=== PATIENT | female | born 1990 | race Hispanic/Latino ===

== ENCOUNTER 2018-11-27 16:40 | Inpatient (IN) | payer MEDICAID, OTHER, SELFPAY ==
[2018-11-27 16:29] LABS: RPR Titer ND
[2018-11-27 16:38] LABS: Absolute Lymphocytes (CBC) 1.5 K/uL (0.7-4.9); Absolute Monocytes 0.7 K/uL (0.1-1.3); Basophils % 0.4 % (0-1.3); Eosinophils % 0.5 % (0-4.4); Hematocrit 40.6 % (36.0-45.0); Lymphocytes % 13.2 % (15.3-44.8); MPV 11.6 fL (7.6-11.3); Monocytes % 6.6 % (3.3-12.3); RBC Red Blood Cell Count 4.67 M/uL (3.86-4.86); Urine Appearance CLEAR; Urine Bilirubin NEGATIVE (NEG); Urine Blood NEGATIVE (NEG); Urine Color YELLOW; Urine Glucose NEGATIVE (NEG); Urine Protein NEGATIVE (NEG); Urine Specific Gravity <=1.005 (1.005-1.030); Urine Urobilinogen 0.2 mg/dL (0.2-1.0)
[2018-11-27 16:40] LABS: Urine Microscopic Reflex NO UMIC
[~2018-11-27 16:40] MED LIST: BUTORPHANOL 1 MG/ML INJ IV PRN; METHYLERGONOVINE 0.2MG/ML AMP IM PRN; PROMETHAZINE 25 MG/ML VIAL IM PRN; Ringers Lactate 1,000 ML IV PRN; miSOPROStol 100 MCG TAB ONE
[2018-11-27] MEDS ORDERED: miSOPROStol 100 MCG TAB VAG SCH (17:00)
[2018-11-27] MEDS ORDERED: Ringers Lactate 1,000 ML IV SCH (17:00)
[2018-11-27 17:03] VITALS: BMI 29.5
[2018-11-27] MEDS ORDERED: INFLUENZA VACCINE (for 3y+) 0.5 ML DOSE IMVAC ONE (18:00)
[2018-11-27 18:09] LABS: Blood Morphology Comment NOT SEEN (NOT SEEN); Platelet Estimate DECR; Platelets, Giant PRESENT; Urine White Blood Cell Casts OK
--- NOTE | 2018-11-27 21:18 | PREOPHP ---
Date of Admission: 11/27/2018 A 28-year-old primigravida, who is either 39 weeks and 1 day or 39 weeks and 6 days according to the ultrasound since there is 6 day difference between menstrual calculation and ultrasound. I think the ultrasound is probably more likely correct although either one could be correct. The patient was sc heduled for Cytotec insertion this afternoon but she is linh very regularly now and is 2.5 cm, 60% to 70% effaced, vertex, -1 station. Baby looks excellent on the monitor. We will not use Cytot ec since she is probably in early labor. Instead, we will let her progress naturally but if she does not show any significant change by early in the morning, then we will start on oxytocin. Full labor talk given. She knows she can ask for analgesics at any time. She knows that if the membranes rupt ure, she is to notify the nurses so they can check her immediately. Right now though she is looking very good but most likely in very early labor at this point. TADEO/GARO Voice ID: [id number]
[2018-11-27 22:15] LABS: RPR (Rapid Plasma Reagin) NON-REACT (NON-REACT)
[2018-11-28] MEDS ORDERED: OXYTOCIN/LR 20 UNIT/1,000 ML BAG IV SCH ×2 (05:00→17:00)
[2018-11-28] MEDS ORDERED: LIDOCAINE 2% 20 ML MDV IV ONE (08:23)
[2018-11-28] MEDS ORDERED: METHYLERGONOVINE 0.2MG/ML AMP IM PRN (08:46)
--- NOTE | 2018-11-28 09:07 | PN ---
The patient is linh regularly now. She is 5-1/2 cm. Baby still has not really descended very well. Baby has good variability. The patient is continuing to do Lamaze breathing. I think she wi ll start making more rapid progress soon. TADEO/GARO Voice ID: [id number] Report ID: [id number]
--- NOTE | 2018-11-28 11:43 | PN ---
The patient is on Pitocin. Norberto regularly now. She is 4-/2. Still -1 station. Rupture of membranes, clear fluid. Baby well applied. Anticipate more rapid progress from this point. The pat ient thus far is going natural. She is doing quite well. Has good control. TADEO/GARO Voice ID: [id number] Report ID: [id number]
--- NOTE | 2018-11-28 12:07 | PN ---
20 milliunits of Pitocin, linh regularly, every 2 to 3 minutes. She is still 7 cm, however, a nd the baby is still -1 station. Baby is occiput posterior. Pelvic rocks have been discussed with t he patient, but so far she has not managed to do them. She has had 1 mg of Stadol, but otherwise is using Lamaze breathing techniques to best advantage. I think with baby rotates, we will have deliver y relatively quickly. Full discussion about pelvic rocks. VYC/MODL Voice ID: [id number] Report ID: [id number]
--- NOTE | 2018-11-28 14:06 | PN ---
The patient is on 20 milliunits, linh very regularly and very firmly every 2 minutes. She has been 7 cm since approximately 9 a.m., therefore, 4 hours without cervical change. Baby looks good. Vital signs are normal. The patient is doing an excellent job of breathing techniques. The baby pandya s not descended past -1 station in this last 4 hours. I think, the baby is occiput posterior. The p atiglesia has been doing pelvic rocks, but that has not brought about rotation of the baby. The patient states that she wishes to wait another hour and if she has made no cervical change, then she wants a . I think this is very reasonable under the circumstances. In fact, I told her she can chris t 2 more hours if she wishes, but the patient states 1 hour will be sufficient. If she makes change of course, we will continue to monitor, but if no change that would be 5 hours of no cervical change at 7 cm and should be enough to represent cephalopelvic disproportion, probably because of the occipu t posterior position of the baby. Her side to side measurements in the pelvis are normal, anterior t o posterior measurements over in somewhat doubt, she may have a prominent sacral promontory, which we will find out if we do a . TADEO/GARO Voice ID: [id number] Report ID: [id number]
[2018-11-28] MEDS ORDERED: IBUPROFEN 200 MG TAB PO PRN (16:47)
[2018-11-28] MEDS ORDERED: BISACODYL 10 MG RECTAL SUPP RECT PRN (16:47)
[2018-11-28] MEDS ORDERED: DOCUSATE NA/SENNA CONC 1 TAB PO PRN (16:47)
[2018-11-28] MEDS ORDERED: Oxycodone HCl/Acetaminophen 1 TAB TAB PO PRN ×2 (16:47)
[2018-11-28] MEDS ORDERED: DIPHENHYDRAMINE 25 MG TAB/CAP PO PRN (16:47)
[2018-11-28] MEDS ORDERED: ACETAMINOPHEN 500 MG TAB PO PRN (16:47)
[2018-11-29] MEDS ORDERED: LIDOCAINE 2% MPF 5 ML VIAL IV ONE (01:40)
[2018-11-29] MEDS ORDERED: CEFTRIAXONE 1000 MG/VIAL IM ONE (01:45)
[2018-11-29] MEDS ORDERED: LIDOCAINE 1% MPF 2 ML AMPULE ONE (02:03)
--- NOTE | 2018-11-29 03:05 | PN ---
I was informed by nurses the patient had mild temperature elevation of 100 and pulse of about 120. H er perineum is fine. There are no signs of hematoma. She did have multiple stitches. We will give her 1 g of Rocephin. I think the main problem is hydration. The patient is instructed to hydrate, a nd we will see what her temperatures do over the next couple of evaluations. TADEO/GARO Voice ID: [id number] Report ID: [id number]
--- NOTE | 2018-11-29 03:47 | OP ---
Surgeon: Davon Munoz MD Miriam Marr, 28-year-old primigravida, admitted for Cytotec induction at 39 weeks and 2 to 3 da ys. On exam, however, patient was having regular uterine contractions, noted to be 2.5 cm, so Cytote c was not used. She was observed overnight and then early this morning, had Pitocin augmentation sta rted. At approximately 7 a.m., rupture of membranes was performed, clear fluid. The patient was at that time about 4 cm. She used Lamaze breathing techniques to best advantage. 1 mg Stadol 1 time on ly. When she reached 7 cm, she stopped dilating for about 4 hours. The baby was thought to be occip ut posterior. Patient did pelvic rocks. Finally baby rotated into an anterior position, then she we nt to complete. Second stage of approximately 1/2 hour. Spontaneous vaginal delivery of an estimate d 7-pound female, Apgars 9 and 9, nuchal cord loosely x2. Small but jagged first-degree lacerations on both sides of the introitus sutured with 2-0 chromic running locked stitch. Local infiltration. Schultze delivery of the placenta, which was inspected and noted to be intact and normal. 350 to 400 cc total blood loss. Rh positive. Immune to Rubella. Negative beta strep screen. The patient herve erated all procedures well. Final Diagnoses: Intrauterine gestation, time of delivery thought to be 39 weeks and 4 days. Nuchal cord loosely x2. TADEO/GARO Voice ID: [id number] Report ID: [id number]
[2018-11-29] MEDS ORDERED: Tdap (Diph,Pertuss(Acell),Tet Vac) 0.5 ML SYR IMVAC ONE ×2 (16:35→16:57)
[2018-11-29] MEDS ORDERED: INFLUENZA VACCINE (for 3y+) 0.5 ML DOSE IMVAC ONE (16:56)
[2018-11-29 18:04] VITALS: BP 139/82; TEMP 98
--- NOTE | 2018-11-30 05:53 | DS ---
Date of Discharge: 11/29/2018 Hospital Course: A 28-year-old primigravida, 39 weeks 1 day. Delivered an estimated 7-pound female. Apgars 9 and 9. Local infiltration for repair of bilateral first-degree sulcus lacerations. Schul tz delivery of the placenta. Estimated blood loss 350-400 cc. Baby noted to have a nuchal cord time s 2 very loosely. Beta strep negative, Rh positive, immune to Rubella. , afebrile, ambula ting, voiding. Lochia is normal. She will be dismissed later today to report back to my office in 6 weeks for followup, to report any temperature elevation of 100 degrees or greater, severe pain, heav y bleeding, or any other type of abnormality. Dismissed with tramadol for analgesia, although she ma y elect to take Motrin instead. Final Diagnoses: Term intrauterine , 39 weeks 1 day, vaginal delivery. Nuchal cord x2. TADEO/GARO Voice ID: [id number] Report ID: [id number]
[2018-12-01 00:51] LABS: HBsAG Nonreactive (Nonreactive)
== END 2018-11-29 18:55 | disposition home or self-care (01) | DRG 806 ==
LOC: L&D 16:40 → 2ND-WC 16:46
PROVIDERS: ADMIT Specialist; ATTEND Specialist
PROC: 10E0XZZ Delivery of Products of Conception, External Approach (ICD-10-PCS; principal; 2018-11-28)
PROC: 0HQ9XZZ Repair Perineum Skin, External Approach (ICD-10-PCS; 2018-11-28)
PROC: 10907ZC Drainage of Amniotic Fluid, Therapeutic from Products of Conception, Via Natural or Artificial Opening (ICD-10-PCS; 2018-11-28)
DX: O70.0 First degree perineal laceration during delivery (principal); O75.2 Pyrexia during labor, not elsewhere classified; Z37.0 Single live birth; O69.81X0 Labor and delivery complicated by cord around neck, without compression, not applicable or unspecified; Z3A.39 39 weeks gestation of pregnancy
CPT/HCPCS: 36415; 81003; 85025; 86592; 86901; 87340; 90715; J0595; J2001; J2210; J2550; J2590; Q2035

== ENCOUNTER 2020-09-08 09:52 | Inpatient (IN) | payer OTHER, SELFPAY ==
[2020-09-08] MEDS ORDERED: miSOPROStoL 100 MCG TAB ONE (15:24)
[2020-09-08] MEDS ORDERED: METHYLERGONOVINE 0.2MG/ML AMP IM PRN (15:49)
[2020-09-08] MEDS ORDERED: CARBOPROST TROME 250 MCG/ML IM PRN (15:49)
[2020-09-08] MEDS ORDERED: PROMETHAZINE INJ 25 MG/ML AMP IM PRN (15:49)
[2020-09-08] MEDS ORDERED: Ringers Lactate 1,000 ML IV PRN (15:49)
[2020-09-08] MEDS ORDERED: BUTORPHANOL 1 MG/ML INJ IV PRN (15:49)
[2020-09-08 15:54] VITALS: BMI 33.3
[2020-09-08] MEDS ORDERED: ZOLPIDEM TARTRATE 10 MG TABLET PO PRN (15:55)
[2020-09-08] MEDS ORDERED: MAGNES/ALUMIN/SIMET 30ML UCUP PO PRN (15:55)
[2020-09-08] MEDS ORDERED: Ringers Lactate 1,000 ML IV SCH (16:00)
[2020-09-08] MEDS ORDERED: OXYTOCIN/LR 20 UNIT/1,000 ML BAG IV SCH (16:00)
[2020-09-08] MEDS ORDERED: Ringers Lactate 1,000 ML IV ONE (16:14)
[2020-09-08 16:31] LABS: Urine Appearance CLOUDY; Urine Bilirubin NEGATIVE (NEG); Urine Blood NEGATIVE (NEG); Urine Color YELLOW; Urine Glucose NEGATIVE (NEG); Urine Protein NEGATIVE (NEG); Urine Specific Gravity <=1.005 (1.005-1.030); Urine Urobilinogen 0.2 mg/dL (0.2-1.0)
[2020-09-08 16:33] LABS: Urine Microscopic Reflex ORDER UMIC
[2020-09-08 16:50] LABS: Absolute Lymphocytes (CBC) 1.2 K/uL (0.7-4.9); Basophils % 0.3 % (0-1.3); Hematocrit 39.7 % (36.0-45.0); Lymphocytes % 15.4 % (15.3-44.8); MPV 12.2 fL (7.6-11.3); RBC Red Blood Cell Count 4.76 M/uL (3.86-4.86)
[2020-09-08 16:56] LABS: Urine Bacteria 20-50 /HPF (<20); Urine Culture Reflex Order REFLEXED; Urine RBC <5 /HPF (NONE SEEN)
[2020-09-08 16:57] LABS: Urine Yeast FEW (NONE SEEN)
[2020-09-08] MEDS ORDERED: miSOPROStoL 100 MCG TAB VAG ONE (17:00)
[2020-09-08] MEDS ORDERED: INFLUENZA VACCINE (for 3y+) 0.5 ML DOSE IMVAC ONE (20:00)
--- NOTE | 2020-09-08 20:22 | PREOPHP ---
Date of Admission: 09/08/2020 A 30-year-old, 2, para 1, 39 weeks today. The patient is Rh positive, immune to rubella, neg ative strep, negative COVID. Requesting induction, Cytotec. Thoroughly discussed in the office and again today. The patient is stable. Baby looks good. She is not having any contractions at this po int. The patient is 1.5 cm, 40% to 50% effaced, vertex, -2 station, but well applied to the cervix. 50 mcg of Cytotec inserted. In 6 hours, we will insert 25 mcg and then 6 hours later another 25 if needed. The patient is planning on natural childbirth, but of course, she knows she can change her m ind if she wishes. Full labor talk given. TADEO/GARO Voice ID: [id number]
[2020-09-08] MEDS ORDERED: miSOPROStoL 100 MCG TAB VAG PRN (21:45)
[2020-09-08 23:23] LABS: RPR (Rapid Plasma Reagin) NON-REACT (NON-REACT)
[2020-09-09] MEDS ORDERED: IBUPROFEN 200 MG TAB PO PRN (07:50)
[2020-09-09] MEDS ORDERED: METHYLERGONOVINE 0.2 MG TAB PO PRN (07:50)
[2020-09-09] MEDS ORDERED: Oxycodone HCl/Acetaminophen 1 TAB TAB PO PRN ×2 (07:50→07:55)
--- NOTE | 2020-09-09 10:02 | OP ---
Surgeon: Davon Munoz MD A 30-year-old, 3, para 1, 39 weeks gestation, had Cytotec 50 mcg inserted yesterday afternoon and then 2 more doses of 25 mcg following that. Pitocin was started this morning. I examined the p atient hour and half ago or so, and she was 5.5 cm, 90% effaced, 0 station. Ruptured membranes, flui d looked like maybe meconium tinged, but in the end it was completely normal. There were no signs of meconium at the time of delivery. She went rapidly to complete. During the labor, had two 1 mg dos es of Stadol. Spontaneous vaginal delivery of an estimated 6 to 6.5 pounds male , Apgars 9 and 9. Small first-degree laceration at the posterior fourchette. Three [id number] stitches 2-0 c hromic under local infiltration. Schultze delivery of the placenta, inspected and noted to be intact and normal. Less than 200 cc blood loss. Patient tolerated all procedures well. Rh positive, immu ne to Rubella. Negative beta strep screen. Final Diagnoses: Term intrauterine , 39 weeks, Cytotec for cervical ripening, labor inducti on, vaginal delivery. NBC/MODL Voice ID: [id number] Report ID: [id number]
[2020-09-10] MEDS ORDERED: INFLUENZA VACCINE (for 3y+) 0.5 ML DOSE IMVAC ONE ×2 (07:44→08:00)
[2020-09-10 07:54] VITALS: BP 137/83; TEMP 96.9
[2020-09-13 03:04] LABS: HBsAG Nonreactive (Nonreactive)
--- NOTE | 2020-09-13 13:36 | PN ---
The patient has progressed to 5.5 to 6 cm, 90 to 100% effaced, 0 station. Rupture of membranes, very light meconium. Basically term leaking fluid. Baby looks excellent on the monitor with good variab ility even after 2 doses of Stadol. She is on 2 milliunits of Pitocin and this time to increase at t his point. The patient is handling her contractions quite well. I think that with rupture of membra ghada, now on Pitocin, we should start seeing more rapid progress. Full discussion with patient. TADEO/GARO Voice ID: [id number] Report ID: [id number]
--- NOTE | 2020-09-13 13:42 | DS ---
Date of Discharge: 09/10/2020 A 30-year-old 3, para 1, at 39 weeks. Cytotec inserted, overnight 2 more Cytotec tablets ___ . The patient went to an active labor pattern. Next morning was 5.5 to 6 cm, rupture of memb ranes. The patient went rapidly to complete. Delivered a 6 pounds 3 ounces male , Apgars 9 an d 9, very small first-degree laceration, posterior fourchette, sutured with 3 stitches of 2-0 chromic . Local infiltration. Schultze delivery of the placenta was inspected and noted to be intact and no rmal. Less than 200 cc blood loss. Had Stadol x2 during the labor IV. Rh positive, immune to Rubel la. COVID negative. afebrile, ambulating and voiding. Lochia is normal. Requests no an algesics on dismissal. To report back to my office in 6 weeks for followup. To report any temperatu re elevation of 100 degrees or greater, severe pain, heavy bleeding, or any other type of abnormaliti es. Requests no analgesics on dismissal. Tdap and flu shots suggested strongly. Final Diagnosis: Intrauterine gestation, 39 weeks, Cytotec for cervical ripening, labor induction, v aginal delivery. Tdap and flu shots offered. Rh, immune to Rubella. COVID negative. Strep negativ e. NBC/MODL Voice ID: [id number] Report ID: [id number]
== END 2020-09-10 09:30 | disposition home or self-care (01) | DRG 807 ==
LOC: 2ND-WC 15:11
PROVIDERS: ADMIT Specialist; ATTEND Specialist
PROC: 10E0XZZ Delivery of Products of Conception, External Approach (ICD-10-PCS; principal; 2020-09-09)
PROC: 3E0P7VZ Introduction of Hormone into Female Reproductive, Via Natural or Artificial Opening (ICD-10-PCS; 2020-09-09)
PROC: 10907ZC Drainage of Amniotic Fluid, Therapeutic from Products of Conception, Via Natural or Artificial Opening (ICD-10-PCS; 2020-09-09)
PROC: 0HQ9XZZ Repair Perineum Skin, External Approach (ICD-10-PCS; 2020-09-09)
DX: O70.0 First degree perineal laceration during delivery (principal); Z37.0 Single live birth; Z3A.39 39 weeks gestation of pregnancy; Z20.828 Contact with and (suspected) exposure to other viral communicable diseases; Z23 Encounter for immunization
CPT/HCPCS: 36415; 81003; 81015; 85025; 86592; 86901; 87086; 87088; 87340; 90471; J0595; J2550; J2590; J7120; Q2035; U0003